=== PATIENT | female | born 1945 | race Caucasian/White ===

== ENCOUNTER 2023-03-29 07:28 | Day surgery (SDC) | payer MEDICARE, BC ==
[~2023-03-29] VITALS: Ht 167.6 cm; Wt 90.4 kg
[2023-03-29 09:05] VITALS: BP 169/79; PULSE 65; TEMP 98.2
[2023-03-29] MEDS ORDERED: D3-5050000 IU PO (09:17)
[2023-03-29] MEDS ORDERED: CEPHALEXIN500 M1 PO (10:14)
[2023-03-29] MEDS ORDERED: ULTRAM 50MG TAB50 MG PO (10:14)
[2023-03-29 11:34] VITALS: BP 150/69; PULSE 78; TEMP 97.1
--- NOTE | 2023-03-29 11:34 | NUR ---
1134 PATIENT RETURNS TO ROOM 3 VIA CART. PATIENT IS DROWSY, BUT ALERTS TO VERBAL STIMULI. RESPIRATIONS EVEN AND UNLABORED, ON ROOM AIR. VITAL SIGNS OBTAINED. XEROFORM, 4X4, KERLIX AND EDUARDO WRAP PRESENT TO BILATERAL HANDS. DRESSINGS ARE CDI. PATIENT APPEARS TO BE RESTLESS IN BED AND WHEN ASKED, SHE STATES THAT SHE IS HAVING PAIN, 10/10. THIS NURSE CALLED DR. CARRASCO FOR PRN ORDER HYDROCODONE 7.5MG PO PRN. THIS NURSE ENTERED ORDER AND ADMINISTERED TO PATIENT. NO DIFFICULTIES SWALLOWING. PATIENT STATES THAT SHE NEEDS TO USE THE RESTROOM. THIS NURSE ASSISTED PT TO RESTROOM, VOIDED WITH NO DIFFICULTIES. ONCE BACK IN ROOM, PATIENT REQUESTED JELLO, CRACKERS AND WATER. NO DIFFICULTIES SWALLOWING. 1235 DISCONTINUED IV FROM RIGHT FOOT WITH NO DIFFICULTIES. IV CATHETER INTACT. 1245 THIS NURSE REVIEWED DISCHARGE INSTRUCTIONS WITH PATIENT. PATIENT VERBALIZED UNDERSTANDING. 1315 PATIENT DISCHARGES FROM UNIT VIA WHEELCHAIR IN STABLE CONDITION.
[2023-03-29 11:50] VITALS: BP 136/98; PULSE 78
[2023-03-29 12:15] VITALS: BP 184/80; PULSE 60
== END 2023-03-29 13:15 | disposition home or self-care (01) ==
LOC: SDCO 07:28
DX: M65.332 Trigger finger, left middle finger (principal); M65.341 Trigger finger, right ring finger
CPT/HCPCS: J0690; J2704; J3010; J7120